=== PATIENT | female | born 2000 | race Caucasian/White ===

== ENCOUNTER 2021-08-13 22:48 | Emergency (ER) | payer OTHER ==
[~2021-08-13] VITALS: Ht 165.1 cm; Wt 57.2 kg
--- NOTE | 2021-08-13 23:00 | NUR ---
PT BIBRA D/T ETOH. PT AAOX4 BREATHING EVENLY AND UNLABORED. PT ATTACHED TO MONITOR AND POX. PT GIVEN BLANKET. MD AT BEDSIDE
--- NOTE | 2021-08-13 23:02 | NUR ---
[facility] AT BEDSIDE
--- NOTE | 2021-08-13 23:06 | NUR ---
Patient discharged to home in stable condition. Written and verbal after care instructions given. Patient verbalizes understanding of instruction.PT ambulatory with a steady gait
[2021-08-13 23:22] VITALS: BP 127/60
== END 2021-08-13 23:06 | disposition home or self-care (01) ==
LOC: ER 22:54
DX: F10.129 Alcohol abuse with intoxication, unspecified (principal); Y90.9 Presence of alcohol in blood, level not specified